=== PATIENT | male | born 1990 | race Caucasian/White ===

== ENCOUNTER 2018-08-20 18:58 | Emergency (ER) | payer OTHER ==
[2018-08-20 19:16] VITALS: BP 127/76
[2018-08-20] MEDS ORDERED: Tetracaine 0.5% OPTH.SOL 4 ML* 1 DROP BTL LEFT EYE ONE (19:16)
[2018-08-20] MEDS ORDERED: Fluorescein Sodium TOPICAL* 1 MG TEST STRIP OPHTHALMIC ONE (19:16)
--- NOTE | 2018-08-20 19:41 | UC ---
Eye Complaint HPI - HPI Summary HPI Summary: Got a piece of dirt into his eye on Tuesday at work. Unable to clear it out. - History of Current Complaint Chief Complaint: UCEye Stated Complaint: LEFT EYE INJURY (WC) Hx Obtained From: Patient Onset/Duration: Sudden Onset, Lasting Days - 2 Timing: Constant Severity Initially: Mild Severity Currently: Moderate Pain Intensity: 3 Location of Injury: Other - cornea Character: Foreign Body Sensation Aggravating Factor(s): Blinking Alleviating Factor(s): Nothing Associated Signs And Symptoms: Positive: Swelling - eyelids Related History: Foreign Body - Risk Factors Penetrating Injury Risk Factor: Negative Globe Rupture Risk Factors: Negative - Allergies/Home Medications Allergies/Adverse Reactions: Allergies Allergy/AdvReac Type Severity Reaction Status Date / Time No Known Allergies Allergy Verified 08/20/18 19:16 Home Medications: Home Medications NK [No Home Medications Reported] 08/20/18 [History Confirmed 08/20/18] PMH/Surg Hx/FS Hx/Imm Hx Previously Healthy: Yes - Surgical History Surgical History: None - Family History Known Family History: Negative: Hypertension - Social History Occupation: Employed Full-time Lives: With Family Alcohol Use: Rare Substance Use Type: None Smoking Status (MU): Never Smoked Tobacco Review of Systems All Other Systems Reviewed And Are Negative: Yes Eyes: Positive: Eye Redness - OS Physical Exam Triage Information Reviewed: Yes Appearance: Well-Appearing, Well-Nourished, Pain Distress - mild Vital Signs: Initial Vital Signs Temp 98.9 F 08/20/18 19:13 Pulse 63 08/20/18 19:13 Resp 16 08/20/18 19:13 BP 127/76 08/20/18 19:13 Pulse Ox 100 08/20/18 19:13 Vital Signs Reviewed: Yes Eyes: Positive: Conjunctiva Inflamed - OS, Other: - Small FB lateral left cornea Fluorescein stain positive uptake at the FB site. Upper left lid flipped and no FB there. Neck exam: Normal Respiratory Exam: Normal Cardiovascular Exam: Normal Musculoskeletal Exam: Normal Neurological Exam: Normal Psychological Exam: Normal Skin Exam: Normal Procedures - Eye Procedure Left Alcaine Drops Administered: Yes Eye FB Removal: removal w/ needle - particle broke up, unable to remove it completely Antibiotic Ointment/Drps Admin: left eye Eye Complaint Course/Dx - Differential Dx/Diagnosis Differential Diagnosis/HQI/PQRI: Conjunctivitis, Corneal Abrasion, Foreign Body Provider Diagnosis: Corneal foreign body with residual material Discharge - Sign-Out/Discharge Documenting (check all that apply): Patient Departure All imaging exams completed and their final reports reviewed: No Studies - Discharge Plan Condition: Stable Disposition: HOME Patient Education Materials: Eye Foreign Body (ED) Referrals: No Primary Care Phys,NOPCP [Primary Care Provider] - Barrie Gonzalez MD [Medical Doctor] - 1 Day (to evaluate left corneal foreign body. ) Additional Instructions: EYE OINTMENT USE: Wash hands. Place 1/4" strip across tip of finger. Pull lower lid down with the index finger and stabilize the ointment finger with the middle finger and scrape the ointment off on the lid. Pull the lid out and let go as you look down. - Billing Disposition and Condition Condition: STABLE Disposition: Home
[2018-08-20] MEDS ORDERED: Erythromycin OPTH OINT* APPLIC OINT LEFT EYE ONE (19:42)
== END 2018-08-20 19:57 | disposition home or self-care (01) ==
LOC: UCCORT 18:58
DX: T15.02XA Foreign body in cornea, left eye, initial encounter (principal); S00.252A Superficial foreign body of left eyelid and periocular area, initial encounter; X58.XXXA Exposure to other specified factors, initial encounter; Y92.89 Other specified places as the place of occurrence of the external cause
CPT/HCPCS: 99202; A9270-GY; G0463